=== PATIENT | male | born 1960 | race Caucasian/White ===

== ENCOUNTER 2021-02-14 09:28 | Emergency (ER) | payer OTHER ==
[~2021-02-14] VITALS: Ht 172.7 cm; Wt 74.8 kg
[~2021-02-14 09:28] MED LIST: AMITRIPTYLINE H10 M1 PO; ASPIRIN325; FLEXERIL PO; HUMALOG100 UNIT/1 SQ; LANTUS SC; NORCO 5-325 TA1 EACH PO; NOVOLOG100 UNIT/1 SQ; PHENERGAN 25 MG25 MG PO
[2021-02-14 10:11] LABS: ABSOLUTE NEUTROPHILS 3.3 thou/uL (1.4-8.2); BASOPHILS 0.2 % (0.0-2.0); EOSINOPHILS 0.1 % (0.0-3.0); HEMATOCRIT 38.1 % (42.0-52.0); LYMPHOCYTES 10.7 % (24.0-44.0); MCH 31.3 pg (26.0-34.0); MCHC 34.1 g/dL (28.0-37.0); MCV 91.7 fL (80.0-100.0); MONOCYTES 11.7 % (1.0-8.0); PLATELET COUNT 100 thou/uL (150-400); POLYS 77.3 % (36.0-66.0); RBC 4.15 mil/uL (4.50-6.00); RDW 13.4 % (10.5-14.5); WBC 4.3 thou/uL (4.0-11.0)
[2021-02-14 10:13] LABS: CALCIUM 9.1 mg/dL (8.5-10.1); CREATININE 1.7 mg/dL (0.7-1.3); POTASSIUM 4.1 mmol/L (3.5-5.1)
[2021-02-14 10:19] LABS: ALBUMIN 3.9 g/dL (3.4-5.0); DIRECT BILIRUBIN 0.2 mg/dL (<0.1-0.2); TOTAL BILIRUBIN 0.6 mg/dL (0.2-1.0); TOTAL PROTEIN 7.8 g/dL (6.4-8.2)
[2021-02-14 14:29] LABS: URINE BLOOD 1+ (Negative); URINE CLARITY CLEAR; URINE COLOR YELLOW; URINE GLUCOSE-RANDOM* 1+ (Negative); URINE KETONES 2+ (Negative); URINE LEUKOCYTES-REFLEX NEGATIVE (Negative); URINE NITRITE-REFLEX NEGATIVE (Negative); URINE PROTEIN (DIPSTICK) 2+ (Negative); URINE SPECIFIC GRAVITY >= 1.030 (1.005-1.035); URINE UROBILINOGEN 0.2 E.U./dl (0.2-1.0)
[2021-02-14 14:36] LABS: ICTOTEST (BILI CONFIRMATORY) Negative (Negative); URINE BILIRUBIN NEGATIVE (Negative)
[2021-02-14 14:47] LABS: HYALINE CASTS 4-10 Moderate /LPF (None Seen); SQUAMOUS None Seen /LPF (0-3); URINE RBC 3-10 Few /HPF (NONE SEEN)
[2021-02-14 14:48] LABS: AMORPHOUS URATES Few /LPF (None Seen); BACTERIA-REFLEX 1-9 Few /HPF (None Seen); URINE WBC-REFLEX 0-5 Rare /HPF (0-5)
[2021-02-14] MEDS ORDERED: BENADRYL ALLERG25 MG PO (15:16)
[2021-02-14] MEDS ORDERED: ZOFRAN ODT4 MG PO (15:16)
[2021-02-14 15:20] VITALS: BP 166/89
== END 2021-02-14 15:20 | disposition home or self-care (01) ==
LOC: ER 09:28
PROVIDERS: Emergency Medicine
DX: U07.1 COVID-19 (principal); E11.40 Type 2 diabetes mellitus with diabetic neuropathy, unspecified; I10 Essential (primary) hypertension; Z88.8 Allergy status to other drugs, medicaments and biological substances; Z79.4 Long term (current) use of insulin; Z79.82 Long term (current) use of aspirin; Z98.890 Other specified postprocedural states

== ENCOUNTER 2021-02-20 15:08 | Inpatient (IN) | payer OTHER ==
[~2021-02-20] VITALS: Ht 172.7 cm; Wt 67.8 kg
[~2021-02-20 15:08] MED LIST changes: +BENADRYL ALLERG25 MG PO; +ZOFRAN ODT4 MG PO
[2021-02-20 15:09] VITALS: BP 192/91
[2021-02-20 15:38] LABS: ABSOLUTE NEUTROPHILS 9.2 thou/uL (1.4-8.2); BASOPHILS 0.1 % (0.0-2.0); HEMATOCRIT 40.1 % (42.0-52.0); LYMPHOCYTES 3.4 % (24.0-44.0); MCH 30.9 pg (26.0-34.0); MCHC 32.4 g/dL (28.0-37.0); MCV 95.3 fL (80.0-100.0); MONOCYTES 6.4 % (1.0-8.0); PLATELET COUNT 266 thou/uL (150-400); POLYS 90.1 % (36.0-66.0); RBC 4.21 mil/uL (4.50-6.00); RDW 13.9 % (10.5-14.5); WBC 10.2 thou/uL (4.0-11.0)
[2021-02-20 15:59] LABS: ALBUMIN 3.2 g/dL (3.4-5.0); BUN 59 mg/dL (7-18); CALCIUM 9.2 mg/dL (8.5-10.1); CHLORIDE 90 mmol/L (98-107); CREATININE 2.9 mg/dL (0.7-1.3); DIRECT BILIRUBIN 0.2 mg/dL (<0.1-0.2); MAGNESIUM 2.3 mg/dL (1.8-2.4); PHOSPHORUS 8.7 mg/dL (2.6-4.7); POTASSIUM 4.7 mmol/L (3.5-5.1); SGOT 30 U/L (15-37); SGPT 22 U/L (16-63); SODIUM 134 mmol/L (136-145); TOTAL BILIRUBIN 0.8 mg/dL (0.2-1.0); TOTAL PROTEIN 7.8 g/dL (6.4-8.2); TROPONIN-I <0.06 ng/mL (<0.06)
[2021-02-20 16:00] LABS: ANION GAP 34 mmol/L (7-16)
[2021-02-20 16:02] LABS: CO2 10 mmol/L (21-32)
[2021-02-20 16:04] LABS: GLUCOSE 791 mg/dL (74-106)
[2021-02-20 17:31] LABS: BE(vivo) -19.1 mmol/L (-2 to +3); HCO3 7.3 mmol/L (22.0-26.0); PCO2 VENOUS 20.4 mmHg (41.0-51.0); PO2 VENOUS 33.1 mmHg (35.0-45.0)
--- NOTE | 2021-02-20 21:15 | NUR ---
PT STATING THAT HE WANTS HIS SON JORDY CHAMORRO TO BE HIS HEALTHCARE POA. [phone].
[2021-02-20 23:44] VITALS: BP 139/81
[2021-02-21] VITALS (43 sets, daily range): BP systolic 98–170; BP diastolic 48–130
[2021-02-21 01:05] LABS: CALCIUM 8.6 mg/dL (8.5-10.1); CREATININE 2.5 mg/dL (0.7-1.3)
[2021-02-21 01:06] LABS: POTASSIUM 3.5 mmol/L (3.5-5.1)
[2021-02-21 01:11] LABS: ALBUMIN 2.8 g/dL (3.4-5.0); MAGNESIUM 2.2 mg/dL (1.8-2.4); PHOSPHORUS 2.1 mg/dL (2.6-4.7); TOTAL BILIRUBIN 0.4 mg/dL (0.2-1.0); TOTAL PROTEIN 7.4 g/dL (6.4-8.2)
[2021-02-21] MEDS ORDERED: LIPITOR40 MG PO (01:47)
[2021-02-21] MEDS ORDERED: SERTRALINE HCL100 MG PO (01:48)
[2021-02-21] MEDS ORDERED: HYDROCODON-ACE1 EAC7 PO (01:50)
[2021-02-21] MEDS ORDERED: TOPROL XL25 MG PO (01:57)
[2021-02-21] MEDS ORDERED: PANTOPRAZOLE SO40 M3 PO (01:58)
[2021-02-21] MEDS ORDERED: COZAAR 25 MG TA25 M1 PO (01:59)
[2021-02-21 06:00] LABS: ABSOLUTE NEUTROPHILS 9.2 thou/uL (1.4-8.2); BASOPHILS 0.1 % (0.0-2.0); HEMATOCRIT 33.3 % (42.0-52.0); HEMOGLOBIN 11.5 gm/dL (14.0-18.0); LYMPHOCYTES 3.6 % (24.0-44.0); MCH 31.1 pg (26.0-34.0); MCHC 34.6 g/dL (28.0-37.0); MONOCYTES 4.8 % (1.0-8.0); PLATELET COUNT 263 thou/uL (150-400); POLYS 91.5 % (36.0-66.0); WBC 10.1 thou/uL (4.0-11.0)
[2021-02-21 06:11] LABS: MCV 89.8 fL (80.0-100.0)
[2021-02-21 06:23] LABS: MAGNESIUM 2.3 mg/dL (1.8-2.4); POTASSIUM 3.6 mmol/L (3.5-5.1)
--- NOTE | 2021-02-21 09:48 | EKG ---
[address] [place] [address] ELECTROCARDIOGRAM REPORT Name: JORDY CHAMORRO Room #: 238-P ADM IN M.R.#: [id number] Admission: 02/20/21 Attend Phys: Qi Lang Discharge: Date of : 56 Report #: [id number] [facility] ED Test Date: 2021-02-20 Test Time: 15:18:39 Pat Name: JORDY CHAMORRO Department: Room: 238 Gender: M Healthcare Financial Analyst: ana : 1960 Requested By: Jarocho Schwarz Order Number: [id number] MD: Galen Peña Measurements Intervals [place] Rate: 108 P: 63 GA: 147 QRS: -32 QRSD: 135 T: 116 QT: 391 QTc: 524 Interpretive Statements Sinus tachycardia Left bundle branch block Compared to ECG 08/08/2013 21:13:39 Left bundle-branch block now present Electronically Signed On 02-21-2021 9:48:01 CDT by Galen Peña [email or web address] <ELECTRONICALLY SIGNED> By: Galen Peña MD, [facility] 02/21/21 0948 [id number] 1518 Galen Peña MD, FACC /EPI
[2021-02-21 10:51] LABS: ALBUMIN 2.3 g/dL (3.4-5.0); CALCIUM 7.6 mg/dL (8.5-10.1); CREATININE 1.8 mg/dL (0.7-1.3); MAGNESIUM 2.1 mg/dL (1.8-2.4); POTASSIUM 4.1 mmol/L (3.5-5.1); TOTAL BILIRUBIN 0.4 mg/dL (0.2-1.0); TOTAL PROTEIN 6.2 g/dL (6.4-8.2)
[2021-02-21 11:45] LABS: URINE BLOOD 3+ (Negative); URINE CLARITY CLEAR; URINE COLOR YELLOW; URINE GLUCOSE-RANDOM* 2+ (Negative); URINE KETONES 2+ (Negative); URINE LEUKOCYTES-REFLEX NEGATIVE (Negative); URINE NITRITE-REFLEX NEGATIVE (Negative); URINE PROTEIN (DIPSTICK) 2+ (Negative); URINE SPECIFIC GRAVITY 1.025 (1.005-1.035); URINE UROBILINOGEN 0.2 E.U./dl (0.2-1.0)
[2021-02-21 11:49] LABS: ICTOTEST (BILI CONFIRMATORY) Negative (Negative); URINE BILIRUBIN NEGATIVE (Negative)
[2021-02-21 12:42] LABS: AMORPHOUS URATES Moderate /LPF (None Seen); BACTERIA-REFLEX 1-9 Few /HPF (None Seen); CASTS None Seen /LPF (None Seen); SQUAMOUS 0-3 Few /LPF (0-3); URINE RBC 3-10 Few /HPF (NONE SEEN); URINE WBC-REFLEX 0-5 Rare /HPF (0-5)
--- NOTE | 2021-02-21 13:42 | NUR ---
Patient admits with hospital with SOA/cough/malaise. Patient COVID positive and no vaccination. Chart reviewed. Patient admits with worsening SOA, admitting to ICU. Patient initially on 6 liters, now 15 liters. and son Benedict Nicolas [phone] listed as contacts. [facility] following for dc planning.
--- NOTE | 2021-02-21 14:45 | NUR ---
BRITTANI SPENCE, UPDATED ON PATIENT CONDITION AND PLAN OF CARE. QUESTIONS ANSWERED.
--- NOTE | 2021-02-21 18:00 | NUR ---
THIS NURSE KEPT IN CONTACT WITH DR. DO THROUGHOUT THE DAY. PATIENT C/O SEVERE NAUSEA, PRN ZOFRAN, COMPAZINE AND REGLAN ORDERED. PATIENT WAS ALSO REFUSING P.O. MEDICATIONS D/T TO NAUSEA AND METOPROLOL CHANGED TO IVP SINCE SBP WAS CLIMBING. PT HAS VERY LITTLE OXYGEN RESERVES. WITH N/V EPISODES WOULD DESATURATE INTO THE 80S AND SUSTAIN THESE OXYGENATIONS. 1103 DR. DO NOTIFIED RE:INCREASED OXYGEN DEMANDS. PATIENT PLACED ON 15L NC DUE TO DESATURATIONS. PATIENT LATER REQUIRED HIGH FLOW NC AT 50L/75% FIO2. SUSTAINED O2 WITH THESE SETTINGS. [employer] SERVICE LEAD [employer]CH[employer] AND [employer] MAKEUP ARTIST ASSISTED PATIENT WITH DPOA PAPERWORK. SON, JORDY, NOTIFIED OF CHANGE. PATIENT CALMER AFTER PRN XANAX.
[2021-02-22] VITALS (37 sets, daily range): BP systolic 87–202; BP diastolic 38–141
[2021-02-22 04:46] LABS: ALBUMIN 2.6 g/dL (3.4-5.0); CALCIUM 7.2 mg/dL (8.5-10.1); CREATININE 1.4 mg/dL (0.7-1.3); DIRECT BILIRUBIN 0.2 mg/dL (<0.1-0.2); PHOSPHORUS 2.5 mg/dL (2.6-4.7); POTASSIUM 3.9 mmol/L (3.5-5.1); TOTAL BILIRUBIN 0.4 mg/dL (0.2-1.0); TOTAL PROTEIN 6.1 g/dL (6.4-8.2)
--- NOTE | 2021-02-22 05:30 | HC ---
[facility] [place] [address] CONSULTATION Name: JORDY CHAMORRO Room #: 238-[facility] IN ..#: [id number] Admission: 02/20/21 Attend Phys: Qi Lang Discharge: Date of : 56 Report #: [id number] THIS REPORT FOR: cc: Roosevelt Recio Bradley Dean DO Barry, Joseph W. MD ~ DATE OF SERVICE: 02/21/2021 INFECTIOUS DISEASE CONSULTATION ATTENDING PHYSICIAN: Dr. Lang. REASON FOR EVALUATION: COVID-19 infection, complicated by pneumonitis and respiratory failure in the setting of hyperglycemia, diabetic ketoacidosis. HISTORY OF PRESENT ILLNESS: Chart reviewed, the patient examined. This is a 60-year-old gentleman with fairly extensive medical history of diabetes mellitus over 40 years, had been ill for a number of days with nausea, vomiting and diarrhea, and subsequently developed progressive dyspnea. He was evaluated apparently on 02/14, was found to have a positive COVID-19 test. Further evaluation screening was done. Creatinine 2.9, blood sugar was 791, bicarb was 10, acetone was greater than 2, lactic acid was 4.0. Due to critical nature of his illness, he was admitted to the intensive care unit. He is currently on supplemental oxygen, 6 L per nasal cannula, to this point has not required pressor support. He does complain of generalized discomfort and some abdominal-related pain and persistent nausea. He has not been documented to be febrile. ALLERGIES: IODINE. CURRENT MEDICATIONS: Include insulin, losartan, metoprolol, dexamethasone, levofloxacin. PAST MEDICAL HISTORY: Diabetes mellitus diagnosed age 19 and has been complicated by peripheral neuropathy. He has hypertension, bilateral retinopathy, some chronic renal insufficiency, history of depression. SOCIAL HISTORY: Nonsmoker. No illicit drug use. Occasional ethanol. FAMILY HISTORY: Noncontributory. REVIEW OF SYSTEMS: Otherwise unremarkable with the exception of the above. PHYSICAL EXAMINATION: GENERAL: He appears chronically ill and undernourished. He is in moderate to marked distress. Nasal cannula is in place at high flow. [facility] [address] [place] [address] CONSULTATION Name: JORDY CHAMORRO Room #: 238-P [facility] IN M.R.#: [id number] Admission: 02/20/21 Attend Phys: Qi Lang Discharge: Date of : 56 Report #: [id number] VITAL SIGNS: He is afebrile, pulse 76, respirations 22, blood pressure 157/70. SKIN: Warm, dry, no rashes. HEENT: Normocephalic. Extraocular muscles intact. NECK: Supple. LUNGS: Few scattered coarse breath sounds. HEART: Regular. I do not appreciate a murmur, borderline tachycardic. ABDOMEN: Somewhat distended, slightly firm. He does have some tenderness, which he attributes to the insulin pump. GENITOURINARY AND RECTAL: Deferred. LABORATORY DATA: Blood cultures sterile thus far. Electrolytes: Sodium 143, potassium 3.6, chloride 108, bicarbonate is 20, anion gap of 15. BUN and creatinine 48 and 2.0. Glucose of 179. Estimated GFR of 34. CBC: White count of 10.1, H and H 11.5 and 33.3, platelets of 263. Lactic acid now is 1.9 most recently. Chest x-ray: Patchy bilateral airspace infiltrates. Influenza antigen testing was negative. Liver functions were otherwise unremarkable. Albumin of 3.2, total protein 7.8. ASSESSMENT AND PLAN: COVID-19 infection, complicated by pneumonitis and respiratory failure in the setting of hyperglycemia and diabetic ketoacidosis. Continue empiric therapy with antibacterials, at risk for bacterial complications. Also, we will institute COVID-directed therapy. He is on corticosteroids. We will add vitamins, remdesivir, Actemra, ivermectin. He is quite tenuous at this point, we will continue to monitor expectantly. <ELECTRONICALLY SIGNED> By: Cyril Galvez MD 02/22/21 0530 [id number] [id number] Cyril Galvez MD /nt
[2021-02-22 11:05] LABS: ALBUMIN 2.6 g/dL (3.4-5.0); ANION GAP 26 mmol/L (7-16); BUN 51 mg/dL (7-18); CALCIUM 7.9 mg/dL (8.5-10.1); CHLORIDE 109 mmol/L (98-107); CO2 12 mmol/L (21-32); CREATININE 2.1 mg/dL (0.7-1.3); GLUCOSE 152 mg/dL (74-106); POTASSIUM 4.2 mmol/L (3.5-5.1); SGOT < 5 U/L (15-37); SGPT 14 U/L (30-65); SODIUM 147 mmol/L (136-145); TOTAL BILIRUBIN 0.3 mg/dL (0.2-1.0); TOTAL PROTEIN 6.8 g/dL (6.4-8.2)
--- NOTE | 2021-02-22 14:19 | NUR ---
PT ANXIOUS. REPOSITIONS SELF IN BED. FIO2 NOT TITRATED. PT AFEBRILE, ADEQUATE UOP, BMX1, POOR APPETITE. PT HAS BEEN EDUCATED ON BREATHING TECHNIQUES FOR ANXIETY AND ADEQUATE OXYGENATION. PT HAS BEEN THOUROUGHLY UPDATED AND EDUCATED ON PT CONDITION AND POC. PT SLOWLY PROGRESSING TOWARDS POC. PT CONTINUES TO THREATEN TO LEAVE AMA BUT HE CANNOT FIND A RIDE, AND FAMILY WILL NOT PICK HIM UP IF HE LEAVES AMA.
--- NOTE | 2021-02-22 19:24 | NUR ---
PT NOT PROGRESSING TOWARDS GOALS.
[2021-02-23] VITALS (30 sets, daily range): BP systolic 144–190; BP diastolic 58–126
[2021-02-23 03:24] LABS: ALBUMIN 2.5 g/dL (3.4-5.0); CALCIUM 6.7 mg/dL (8.5-10.1); CREATININE 1.3 mg/dL (0.7-1.3); DIRECT BILIRUBIN 0.2 mg/dL (<0.1-0.2); PHOSPHORUS 2.9 mg/dL (2.5-4.9); POTASSIUM 3.6 mmol/L (3.5-5.1); TOTAL BILIRUBIN 0.7 mg/dL (0.2-1.0); TOTAL PROTEIN 6.1 g/dL (6.4-8.2)
[2021-02-23 06:52] LABS: ALBUMIN 2.5 g/dL (3.4-5.0); CREATININE 1.3 mg/dL (0.7-1.3); POTASSIUM 4.3 mmol/L (3.5-5.1)
--- NOTE | 2021-02-23 09:04 | NUR ---
ASSUMED CARE OF PT AT 0700.
[2021-02-24] VITALS (32 sets, daily range): BP systolic 85–177; BP diastolic 35–104
[2021-02-24 04:04] LABS: HEMATOCRIT 36.4 % (42.0-52.0); HEMOGLOBIN 12.5 gm/dL (14.0-18.0); MCH 30.7 pg (26.0-34.0); MCHC 34.4 g/dL (28.0-37.0); MCV 89.3 fL (80.0-100.0); RBC 4.07 mil/uL (4.50-6.00); RDW 13.8 % (10.5-14.5); WBC 10.9 thou/uL (4.0-11.0)
[2021-02-24 04:23] LABS: ALBUMIN 2.7 g/dL (3.4-5.0); CREATININE 1.3 mg/dL (0.7-1.3); DIRECT BILIRUBIN 0.3 mg/dL (<0.1-0.2); PHOSPHORUS 3.2 mg/dL (2.5-4.9); POTASSIUM 3.6 mmol/L (3.5-5.1); TOTAL PROTEIN 6.2 g/dL (6.4-8.2)
--- NOTE | 2021-02-24 06:28 | NUR ---
PT SAT IN CHAIR UNTIL APPROXIMATELY 0300. REMAIN ALERT AND ORIENT TIMES THREE, FORGETFUL AT TIMES. BP ELEVATED, SCHEDULED METOPROLOL MINIMALLY EFFECTIVE. TOLERATING OPTI-TANNER CANNULA. PT REFUSED ALL PO MEDS EXCEPT TRAZADONE AND ALPRZOLAM. PT STATE THAT HE JUST CAN'T TAKE THEM FOR WANTING TO VOMIT. SUGGESTED APPLE SAUCE, CRUSHED IN PUDDING. PT REFUSED. SR-ST PER MONITOR. SLOW PROGRESS TOWARDS DC GOALS. WILL CONTINUE TO MONITOR.
--- NOTE | 2021-02-24 18:48 | NUR ---
PT IS NOT PROGRESSING TOWARDS DISCHARGE AT THIS TIME, AT THE TIME OF RN ARRIVAL PT WAS TACHYCARDIC, THROUHOUT THE DAY PT WAS BECOMING INCREASINGLY MORE IMPULSIVE AND MORE TACHYCARDIC, HOSPITALIST WAS CALLED, CONSULT FOR PULMONOLOGY WAS ORDRED, PRECEDEX GTT STARTED PT ABLE TO RELAX AND HAD BETTER OUTCOMES, HR IN THE 60s, O2 IN THE 99, ABLE TO SLEEP AND CATCH REST. PT IS ABLE TO TURN SELF IN BED, PT WAS VERY CONFUSED AND WANTED TO LEAVE IN THE MORNING BUT APPEARED M0RE ORIENTED AT THE END OF THE SHIFT. PT BECOMES SOA ON EXERTION, PRECEDEX IN CONJUNCTION W/ SCHEDULED MEDICATIONS WAS ABLE TO BRING BP DOWN WELL. BROTHER FLO HAD CALLED AT THE BEGINNING OF THE SHIFT, VOICING CONCERN FOR THE PT, STATED THAT FLO DID NOT WANT PT TO COME HOME LIKE THIS. PT WAS NOT ABLE TO TOLERATE DIET TODAY, HAD HIGHBLOOD SUGAR >400, WITH USAGE OF LANTUS/REGULAR/LISPRO PT BS ABLE TO COME DOWN TO MID 100s. NO BM THIS SHIFT. PT AT THIS TIME IS SEEN RESTING COMFORTABLY. RN TO SIGN OFF
[2021-02-25] VITALS (29 sets, daily range): BP systolic 97–185; BP diastolic 38–84
[2021-02-25 04:59] LABS: HEMATOCRIT 35.7 % (42.0-52.0); HEMOGLOBIN 12.6 gm/dL (14.0-18.0); MCHC 35.3 g/dL (28.0-37.0); MCV 87.8 fL (80.0-100.0); RBC 4.06 mil/uL (4.50-6.00); RDW 13.9 % (10.5-14.5); WBC 10.3 thou/uL (4.0-11.0)
[2021-02-25 05:06] LABS: ALBUMIN 2.5 g/dL (3.4-5.0); CALCIUM 6.8 mg/dL (8.5-10.1); CREATININE 1.1 mg/dL (0.7-1.3); DIRECT BILIRUBIN 0.3 mg/dL (<0.1-0.2); PHOSPHORUS 2.9 mg/dL (2.5-4.9); TOTAL BILIRUBIN 1.1 mg/dL (0.2-1.0); TOTAL PROTEIN 5.5 g/dL (6.4-8.2)
--- NOTE | 2021-02-25 08:20 | NUR ---
ASSUME CARE 1900. PT/VITALS STABLE. DENIES ANY PAIN. MODERATE TOLERANCE TO ACTIVITY. A/OX 4. PT IS A BIT RESTLESS. SOB NOTED WITH VERY MILD EXERTION. NO NAUSEA/VOMITING NOTED. BLOOD SUGARS RUN LOW/ VERY POOR APETITTE NOTED. MODERATE PROGRESS WITH POC. ASSESSMENT CHARTED. PLAN IS TO CONTINUE TO MONITOR AND MANAGE INFECTION/RESP FUNCTGION AND ELECTROLYTES. WILL CONTINUE TO FOLOW WITH POC
--- NOTE | 2021-02-25 15:03 | NUR ---
KIRK reviewed chart and spoke with nursing and attending physician. Pt remains in Enhanced Isolation due to COVID. Pt in ICU. Pt is afebrile and requiring optiflow support. Pt is on IV abx and IV steroids. Therapy evals to be ordered when pt is able to participate. KIRK spoke with pt's son, Benedict, via phone. Introduced role of SW. Pt and spouse lives at home. Pt's recently had a stroke and pt is her primary caregiver. Prior to admission, pt was independent with ADLs. No use of DME. Pt's home has several steps that pt has been able to navigate. No hx of services or post-acute placement. Pt's PCP is Dr. Roosevelt Tsai in [facility]. Pt completed DPOA ppwk on 02/21, which is on pt's chart. Pt appointed his son, Brien, as his DPOA for healthcare. Pt's is also listed as contact, but is unable to answer her phone at times. Pt's son, Brien, is assisting pt's at this time. Per Brien, pt did not receive the COVID vaccine, as he was concerned about the side effects. KIRK explained that therapy evals will be ordered when pt is able to participate. Contact info for SW provided. KIRK is following to assist as needed with discharge planning.
--- NOTE | 2021-02-25 15:20 | NUR ---
VAT CONSULTED FOR PICC LINE. WHEN ASSESSING VESSELS IN BILATERAL ARMS, BASILIC'S NONCOMPRESSIBLE. JORDY RN NOTIFIED THAT BILATERAL VENOUS US NEEDED TO RO DVT'S
--- NOTE | 2021-02-25 19:44 | NUR ---
US BIALERAL ARMS CONFIRMED OCCLUSIVE THROMBUS BILATERALLY. DR MARES HERE NOTIFED. DR MARES OK'D CVAD, PICC NOT APPROPRIATE. LIJ WAS WIDELY PATENT WITH USG. 5FR TL POWER PICC TRIMMED TO 25CM INSERTED TO 2CM EXTERNAL WITH PEAKED P-WAVES ON 3CG FOR CONFIRMATION. PT TOLERATED FAIR, BECAME VERY RESTLESS DURING PROCEDURE. LIJ RELEASED FOR IMMEDIATE USE PER PROTOCOL. RN INSTRUCTED TO REMOVE ALL 3 PIV'S
--- NOTE | 2021-02-25 20:39 | NUR ---
PT IS NOT PROGRESSING TOWARDS DISCHARGE AT THIS TIME, AT THE TIME OF ARRIVAL PT WAS COMPLAINING OF PIV PAIN ON ALL SITES, UPONE ASSESSMENTS IV SITES ARE WNL AND IS ABLE TO FLUSH WELL BUT PT IS STILL COMPLAINING OF PAIN. PT IS REFUSING PO MEDS/NUTIRTION/FLUIDS STATING THAT DRINKING WATER CAUSES GASTRIC DOE, PANTOPRAZOLE ORDERED, AND CAUSES ANXIETY, PRECEDEX GTT RUNNING. PT IS REQUESTING THAT IV IS TO STOP RUNNING DUE TO THE PAIN, PT IS AOX4 BUT IS RESTLESS/ANXIOUS. PT ALSO NEEDS THE IV POTASSIUM DUE TO LOW LEVEL THIS MORNING BUT IS UNABLE TO TOLERATE PO. PICC LINE INSERTION WAS REQUESTED BY THE RN AND APPROVED BY THE ATTENDING, IV TEAM RN STATED THAT THERE WERE OCCLUSIONS IN THE VESSELS AND NEEDED US, US WAS ORDERD AND REVEALED PT WITH MULTIPLE CLOTS, CAUSING PAIN. PT IS NEEDING CENTRAL LINE ACCESS AT THE JUGULAR SITE BUT IS UNABLE TO COOPERATE D/T ANXIETY/RESTLESSNESS AND STATED THAT HE CANNOT LAY DOWN FLAT "NEVER HAVE AND NEVER WILL" PT CARE BECOMING INCREASINGLY DIFFICULT PT IS NOT COOPERATING WITH MEDICAL INTERVENTIONS. INTENSIVITIST REACHED OUT, SEDATIVE MEDICATIONS ORDERED AND WERE ADMINISTERED. PT STILL RESTLESS, NEEDED MORE SEDATIVE MEDCATIONS, WITH ONE RN ATTENDANCE/ASSISTANCE, IV TEAM RN WAS ABLE TO PLACE THE CENTRAL BUT PT WAS VERY IMPULSIVE AND TRYING TO PULL EQUIPEMENT SO HAD TO BE PLACED IN RESTRAINTS. RN SIGNING OFF AT THIS TIME.
[2021-02-25 21:05] LABS: HEMATOCRIT 35.6 % (42.0-52.0); HEMOGLOBIN 12.2 gm/dL (14.0-18.0); MCH 30.4 pg (26.0-34.0); MCHC 34.2 g/dL (28.0-37.0); MCV 88.9 fL (80.0-100.0); RBC 4.01 mil/uL (4.50-6.00); RDW 14.1 % (10.5-14.5); WBC 9.7 thou/uL (4.0-11.0)
[2021-02-25 21:14] LABS: MAGNESIUM 1.7 mg/dL (1.8-2.4)
[2021-02-25 21:18] LABS: INR 1.43; PROTIME 15.3 Seconds (10.5-12.1)
[2021-02-26] VITALS (30 sets, daily range): BP systolic 122–183; BP diastolic 37–82
--- NOTE | 2021-02-26 00:32 | NUR ---
IV TEAM WAS ABLE TO PLACE LEFT IJ CENTRAL LINE AT BEGINNING OF SHIFT. IV TEAM NURSE CONFIRMED LINE PLACEMENT AND IT WAS RELEASED FOR USE. PT WAS RESTLESS, PULLING AT LINES, CONFUSED. PRECEDEX GTT INCREASED TO MAX DOSE. DR MARES ROUNDED ON UNIT; ORDERS OBTAINED TO PLACE PT IN BILATERAL WRIST RESTRAINTS, INSERT REY, AND START HEPARIN GTT FOR DVT PROTOCOL. PT REMAINS CONFUSED, BUT IS MORE CALM WITH PRECEDEX. WHEN RN ATTEMPTED TO TITRATED DOWN PRECEDEX, PT BECAME RESTLESS, TRYING TO GET OUT OF BED, STATING HE "WANTED TO GET OUT OF HERE." PRECEDEX GTT INCREASED BACK TO MAX DOSE. RT TOOK PT OFF OPTIFLOW AND PLACED PT ON 5L NC. SPO2 STABLE ON 5L NC. HOWEVER, HE DOES DESAT TO 70S-80S WITH RESTLESSNESS OR EXERTION. PT RESTING IN BED AT THIS TIME. HEPARIN GTT INFUSING PER PROTCOL. NOT PROGRESSING WELL TOWARD POC GOALS. WILL CONTINUE TO MONITOR CLOSELY.
--- NOTE | 2021-02-26 00:58 | NUR ---
1999 - PT'S SON (JORDY) CALLED UNIT. HE WAS PROVIDED UPDATE ON POC AND NOTIFIED THAT PT IS NOW IN WRIST RESTRAINTS. JORDY ALSO CAME TO HOSPITAL TO SKATING CARHOP PT'S CELL PHONE.
[2021-02-26 04:14] LABS: HEMATOCRIT 35.9 % (42.0-52.0); HEMOGLOBIN 12.5 gm/dL (14.0-18.0); MCH 31.2 pg (26.0-34.0); MCHC 34.8 g/dL (28.0-37.0); MCV 89.7 fL (80.0-100.0); RDW 13.6 % (10.5-14.5); WBC 9.7 thou/uL (4.0-11.0)
[2021-02-26 04:26] LABS: CREATININE 1.3 mg/dL (0.7-1.3); POTASSIUM 3.3 mmol/L (3.5-5.1)
--- NOTE | 2021-02-26 04:41 | NUR ---
PT HAS RESTED WILL DURING THE NIGHT WHILE ON PRECEDEX GTT. HE STILL HAS OCCASSIONAL PERIODS OF RESTLESSNESS. HEPARIN GTT INFUSING PER PROTOCOL. WILL TITRATED BASED ON MORNING APTT RESULT. AFEBRILE. REY TO DD WITH GOOD URINE OUTPUT. WILL MONITOR FURTHER.
--- NOTE | 2021-02-26 09:56 | NUR ---
Dr Low would like to trial dobhoff-rec glucerna 1.2 goal 70ml/hr with 250ml\ water flush every 6 hr
[2021-02-27] VITALS (29 sets, daily range): BP systolic 117–199; BP diastolic 36–143
[2021-02-27 03:48] LABS: HEMATOCRIT 35.2 % (42.0-52.0); HEMOGLOBIN 12.1 gm/dL (14.0-18.0); MCH 30.4 pg (26.0-34.0); MCHC 34.5 g/dL (28.0-37.0); MCV 88.3 fL (80.0-100.0); RBC 3.99 mil/uL (4.50-6.00); RDW 13.6 % (10.5-14.5)
[2021-02-27 03:55] LABS: CALCIUM 6.7 mg/dL (8.5-10.1); CREATININE 1.1 mg/dL (0.7-1.3); POTASSIUM 3.2 mmol/L (3.5-5.1)
--- NOTE | 2021-02-27 12:40 | NUR ---
poc is for pt to have psych consult d/t delerium, aggression, pulling out selby, and spitting out meds. pt on 3l nc and precedex.
--- NOTE | 2021-02-27 19:21 | NUR ---
PT PROGRESSING TOWARDS GOALS. 02 3L. REMAINS ON PRECEDEX GTT. ATIVAN STATED TODAY BUT PT CHOKED. FOR SPEECH EVAL IN AM. VERY BIZZARE BEHAVIOR AT TIMES. SEEMS TO HAVE NO FILTER. ANGRY ABOUT BEING HERE. ANGRY THAT SON TOOK HIS PHONE.
--- NOTE | 2021-02-27 19:22 | NUR ---
02 SAT ON MONITOR MALFUNCTIONS. PORTABLE ON PT REMAINS 97-98% FROM 1300 TO 1900.
[2021-02-28] VITALS (15 sets, daily range): BP systolic 142–208; BP diastolic 46–74
[2021-02-28 06:22] LABS: HEMATOCRIT 34.4 % (42.0-52.0); HEMOGLOBIN 11.8 gm/dL (14.0-18.0); MCH 30.3 pg (26.0-34.0); MCHC 34.2 g/dL (28.0-37.0); MCV 88.4 fL (80.0-100.0); RBC 3.9 mil/uL (4.50-6.00); RDW 13.7 % (10.5-14.5); WBC 6.6 thou/uL (4.0-11.0)
[2021-02-28 06:28] LABS: CREATININE 1.2 mg/dL (0.7-1.3); POTASSIUM 3.4 mmol/L (3.5-5.1)
--- NOTE | 2021-02-28 15:08 | NUR ---
Discussed during am rounds and los. COVID + cont. O2 3L/NC. No anticipated dc over the weekend. Will cont. following as needed for dc need. Cm visit sonamarjit via phone call no question or needs voiced.
--- NOTE | 2021-02-28 15:24 | NUR ---
PT ON HEPARIN GTT. PT APTT READ FALSE HIGH. GTT WAS TURNED OFF AND LAB WAS CALLED TO DRAW THE LAB. LAB COULD GET ENOUGH BLOOD FOR BLUE TOP. NURSE REDRAW THE LAB AND VALUE WAS RESULTED AT 1228.
--- NOTE | 2021-02-28 18:22 | NUR ---
PT AT 1726 TODAY. FAMILY WITHDREW CARE. FAMILY AT BEDSIDE APPROVED BY AND FORGE OPERATOR HELPER NAOMI. FAMILY HAD THEIR PPE ON AND WAS PROTECTED DURING THEIR BEDSIDE VISIT WITH THE PATIENT. ALL CONSULTS NOTIFIED. [facility] CALLED AND PT NOT A CANDIDATE FOR DONOR.
--- NOTE | 2021-02-28 19:55 | NUR ---
Son (Benedict) called. Update regarding current health status and current plan of care provided. All questions and concerns addressed at this time
--- NOTE | 2021-02-28 22:14 | NUR ---
Hydralazine IVP given per PRN SBP 170s
[2021-03-01] VITALS (8 sets, daily range): BP systolic 138–164; BP diastolic 40–68
--- NOTE | 2021-03-01 01:00 | NUR ---
aPTT drawn and sent to lab
--- NOTE | 2021-03-01 01:15 | NUR ---
Second aPTT sent per lab's request
--- NOTE | 2021-03-01 03:10 | NUR ---
Third aPTT drawn and sent per labs request. Sent 2 blue top vials with this draw. Awaiting lab results for titration of heparin gtt
--- NOTE | 2021-03-01 04:41 | NUR ---
Report given to Emma YOU on . Pt awaiting transfer to room #358
--- NOTE | 2021-03-01 05:20 | NUR ---
pT TRANSFERED TO ROOM #358 VIA WHEELCHAIR WITH HEPARIN GTT INFUSING. ALL PERSONAL BELONGINGS INCLUDING CLOTHES, CELLPHONE AND INSULIN PUMP SENT TO NEW ROOM ASSIGNMENT. NOTIFIED SON (JORDY) OF NEW ROOM ASSIGNMENT.
--- NOTE | 2021-03-01 05:59 | NUR ---
PT ARRIVED FROM ICU AT APPROX 0530. PT ON HEPARIN GTT AND IVF GTT. REY IN PLACE. FALL AND ISOLATION PRECAUTIONS IN PLACE.
--- NOTE | 2021-03-01 19:28 | NUR ---
ASSUMED PATIENT CARE AT 0700. A/O X4 BUT CONFUSED WANTS GO HOME. TITRATED TO 2L/NC. UP WITH STANDBY. VSS. SLOWLY TOWARDS POC GOALS.
[2021-03-02 03:40] VITALS: BP 154/64
--- NOTE | 2021-03-02 06:27 | NUR ---
Patient making some progress towards outcome goals. Vital signs and rhythm stable. Weaned off oxygen sat 95% on room air. Burris catheter removed and partient was able to urinate 100 ml. High fall risks, fall precautions in place. Heparin drip per DVT protocol, rate unchanged, last APTT therapeutic, next APTT at 0915. Patient anxious to go home.
[2021-03-02 07:32] VITALS: BP 183/85
--- NOTE | 2021-03-02 09:51 | NUR ---
PT REFUSING ANY FURTHER MEDICATION TODAY UNTIL HE TALKS TO ATTENDING PHYSICIAN. PT STATES HE IS GOING TO GO HOME.
--- NOTE | 2021-03-02 13:27 | NUR ---
PT REFUSING ACCU CHECKS.
[2021-03-02] MEDS ORDERED: LEVOFLOXACIN750 MG PO (14:08)
[2021-03-02] MEDS ORDERED: CARDIZEM CD120 MG PO (14:09)
[2021-03-02] MEDS ORDERED: ASA81BEC PO (14:13)
[2021-03-02] MEDS ORDERED: DECADRON4 MG PO (14:13)
[2021-03-02 14:43] VITALS: BP 183/85
--- NOTE | 2021-03-02 14:44 | NUR ---
CALLED PT'S SON AND WENT OVER DISCAHRGE ORDERS AND MEDICATIONS. PT'S SON STATED THAT HE WOULD BE ABLE TO GO OVER PT HIS PARENTS HOUSE EACH DAY TO CHECK IN ON THEM AND MAKE SURE FATHER HAS CHECKED BLOOD SUGAR AND TAKEN INSULIN. WILL DISCONTINUE CENTRAL LINE AND TELE. SON WILL ATTENDANCE OFFICER PATIENT TO TAKE HOME VIA PRIVATE VEHICLE. UPDATE DR. SCHRADER THAT I HAVE SPOKE WITH SON ABOUT DISCAHRGE.
[2021-03-02 15:57] VITALS: BP 183/85
== END 2021-03-02 16:28 | disposition home or self-care (01) | DRG 871 ==
LOC: ER 15:08 → EROBS 17:14 → ICU 17:14 → 3W 03-01 05:16
PROVIDERS: Emergency Medicine; Hospitalist; Internal Medicine; Internal Medicine Pulmonary Disease; Nurse Practitioner Family; Pediatrics; Specialist; ADMIT Hospitalist; ATTEND Hospitalist
PROC: XW033E5 Introduction of Remdesivir Anti-infective into Peripheral Vein, Percutaneous Approach, New Technology Group 5 (ICD-10-PCS; principal; 2021-02-21)
PROC: XW033H5 Introduction of Tocilizumab into Peripheral Vein, Percutaneous Approach, New Technology Group 5 (ICD-10-PCS; principal; 2021-02-21)
PROC: 5A0955A Assistance with Respiratory Ventilation, Greater than 96 Consecutive Hours, High Flow/Velocity Cannula (ICD-10-PCS; principal; 2021-02-21)
PROC: 05HY33Z Insertion of Infusion Device into Upper Vein, Percutaneous Approach (ICD-10-PCS; 2021-02-25)
PROC: 5A0935A Assistance with Respiratory Ventilation, Less than 24 Consecutive Hours, High Flow/Velocity Cannula (ICD-10-PCS; 2021-02-27)
DX: A41.9 Sepsis, unspecified organism (principal); E11.10 Type 2 diabetes mellitus with ketoacidosis without coma; U07.1 COVID-19; J12.82 Pneumonia due to coronavirus disease 2019; J96.01 Acute respiratory failure with hypoxia; E46 Unspecified protein-calorie malnutrition; G93.40 Encephalopathy, unspecified; R04.2 Hemoptysis; E87.1 Hypo-osmolality and hyponatremia; I82.613 Acute embolism and thrombosis of superficial veins of upper extremity, bilateral; K80.20 Calculus of gallbladder without cholecystitis without obstruction; E87.6 Hypokalemia; E11.42 Type 2 diabetes mellitus with diabetic polyneuropathy; E11.65 Type 2 diabetes mellitus with hyperglycemia; E11.649 Type 2 diabetes mellitus with hypoglycemia without coma; E86.0 Dehydration; G89.29 Other chronic pain; M54.9 Dorsalgia, unspecified; I10 Essential (primary) hypertension; Z79.4 Long term (current) use of insulin; Z68.22 Body mass index [BMI] 22.0-22.9, adult; Z79.899 Other long term (current) drug therapy; Z88.8 Allergy status to other drugs, medicaments and biological substances; Z72.89 Other problems related to lifestyle
CPT/HCPCS: 10078; 10203; 10879; 50455

== ENCOUNTER → 2021-04-01 | Outpatient (CLI) | payer OTHER ==
[~2021-04-01] MED LIST changes: +ASA81BEC PO; +CARDIZEM CD120 MG PO; +COZAAR 25 MG TA25 M1 PO; +DECADRON4 MG PO; +HYDROCODON-ACE1 EAC7 PO; +LEVOFLOXACIN750 MG PO; +LIPITOR40 MG PO; +PANTOPRAZOLE SO40 M3 PO; +SERTRALINE HCL100 MG PO; +TOPROL XL25 MG PO
== END ==
LOC: SJCVC 12:55
PROVIDERS: ATTEND Internal Medicine Cardiovascular Disease
DX: R94.31 Abnormal electrocardiogram [ECG] [EKG] (principal); I45.9 Conduction disorder, unspecified; R00.0 Tachycardia, unspecified; R93.1 Abnormal findings on diagnostic imaging of heart and coronary circulation; I26.99 Other pulmonary embolism without acute cor pulmonale; K92.2 Gastrointestinal hemorrhage, unspecified; D62 Acute posthemorrhagic anemia; I10 Essential (primary) hypertension; Z88.8 Allergy status to other drugs, medicaments and biological substances; Z79.899 Other long term (current) drug therapy; Z72.89 Other problems related to lifestyle; Z86.16 Personal history of COVID-19; E10.9 Type 1 diabetes mellitus without complications; E78.5 Hyperlipidemia, unspecified

== ENCOUNTER → 2021-04-18 | Outpatient (CLI) | payer OTHER | LOC: SJCVCIMAG 08:03 | PROVIDERS: ATTEND Internal Medicine Cardiovascular Disease | DX: I44.7 Left bundle-branch block, unspecified (principal); I45.89 Other specified conduction disorders; R94.31 Abnormal electrocardiogram [ECG] [EKG]; R93.1 Abnormal findings on diagnostic imaging of heart and coronary circulation; I10 Essential (primary) hypertension; R00.0 Tachycardia, unspecified; E10.40 Type 1 diabetes mellitus with diabetic neuropathy, unspecified; F32.9 Major depressive disorder, single episode, unspecified; E78.5 Hyperlipidemia, unspecified; I26.99 Other pulmonary embolism without acute cor pulmonale; R55 Syncope and collapse; Z79.899 Other long term (current) drug therapy; Z86.16 Personal history of COVID-19; Z88.8 Allergy status to other drugs, medicaments and biological substances; Z72.89 Other problems related to lifestyle ==